=== PATIENT | female | born 2005 | race Caucasian/White ===

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

== ENCOUNTER → 2024-12-04 | Outpatient (CLI) | payer OTHER | LOC: M EKG 10:46 | PROVIDERS: ATTEND Nurse Practitioner Family | DX: Z82.49 Family history of ischemic heart disease and other diseases of the circulatory system (principal) ==